=== PATIENT | male | born 1965 | race Caucasian/White ===

== ENCOUNTER → 2018-01-31 | Outpatient (CLI) | payer OTHER ==
--- NOTE | 2018-01-31 13:02 | XR ---
Right knee HISTORY: Right knee pain, limited range of motion 3 views of the right knee Bone mineralization, joint spaces and alignment are maintained. No evident joint effusion. IMPRESSION: No significant abnormality is evident.
== END | disposition home or self-care (01) ==
LOC: RADXRYALE 09:38
PROVIDERS: ATTEND Physician Assistant Medical
DX: M25.561 Pain in right knee (principal)